=== PATIENT | female | born 2000 | race Caucasian/White ===

== ENCOUNTER 2019-09-26 22:23 | Emergency (ER) | payer OTHER ==
[~2019-09-26] VITALS: Ht 162.6 cm; Wt 58.1 kg
[2019-09-26 22:30] VITALS: BP 117/83; Ht 162.6 cm; Wt 58.1 kg
== END 2019-09-26 23:02 | disposition home or self-care (01) ==
LOC: ED 22:23
DX: J06.9 Acute upper respiratory infection, unspecified (principal)